=== PATIENT | female | born 1985 | race Two or more races ===

== ENCOUNTER 2022-08-02 18:33 | Emergency (ER) | payer SELFPAY ==
[~2022-08-02] VITALS: Ht 152.4 cm; Wt 51.9 kg
[2022-08-02] MEDS ORDERED: KETOROLAC TROMETH 30 MG/ML 1ML VIAL IM ONE (23:15)
[2022-08-03 01:07] VITALS: BP 115/78
== END 2022-08-03 06:05 | disposition home or self-care (01) ==
LOC: ER 18:36
DX: N64.4 Mastodynia (principal)
CPT/HCPCS: 71250; 96372; 99285; J1885